=== PATIENT | male | born 1950 | race Caucasian/White ===

== ENCOUNTER 2022-09-13 16:01 | Emergency (ER) | payer MEDICARE ==
[~2022-09-13] VITALS: Ht 177.8 cm; Wt 87.1 kg
[2022-09-13 17:26] VITALS: BP 136/73
[2022-09-13] MEDS ORDERED: SUMAtriptan SUCCINATE 6 MG/0.5 ML VL SC ONE (17:30)
[2022-09-13] MEDS ORDERED: SUMA50TA2 PO (17:58)
== END 2022-09-13 17:59 | disposition home or self-care (01) ==
LOC: ER 16:01
DX: G43.909 Migraine, unspecified, not intractable, without status migrainosus (principal); I10 Essential (primary) hypertension; E78.5 Hyperlipidemia, unspecified
CPT/HCPCS: 70450; 96372; 99284; J3030